=== PATIENT | female | born 1955 | race American Indian/Alaskan Native ===

== ENCOUNTER 2017-06-13 06:09 | Inpatient (IN) | payer OTHER ==
--- NOTE | 2017-06-09 11:59 | Anesthesia Consultation ---
Anesthesia Consult and Med Hx Date of service: 06/09/17 - Airway Anesthetic Teeth Evaluation: Good ROM Head & Neck: Adequate Mental/Hyoid Distance: Inadequate (less than 3FB) Mallampati Class: Class II Intubation Access Assessment: Probably Good - Pulmonary Exam CTA: Yes - Cardiac Exam Cardiac Exam: RRR - Pre-Operative Health Status ASA Pre-Surgery Classification: ASA3 Proposed Anesthetic Plan: General - Pre-Anesthesia Comment Pre-Anesthesia Comments: 62y F with h/o MARK on CPAP, HTN/HLD, OA s/p knee replacment, who presents for eval prior to lap GJ revision (primary 2007). EKG (06/06/2017) - Sinus kailey with sinus arrythmia. CBC (06/07/2017) - Hgb 12.3, Plt 245 - Pulmonary Hx Smoking: No Hx Asthma: No SOB: No Hx Sleep Apnea: Yes - Cardiovascular System Hx Hypertension: Yes (20 YEARS) Hx Coronary Artery Disease: No Hx Cardia Arrhythmia: Yes (Sinus arrythmia on EKG) Hx Heart Murmur: No - Central Nervous System Hx Seizures: No CVA: No Hx Psychiatric Problems: No - Gastrointestinal Hx Gastroesophageal Reflux Disease: No - Endocrine Hx Renal Disease: No Hx Liver Disease: No Hx Insulin Dependent Diabetes: No Hx Non-Insulin Dependent Diabetes: No Hx Thyroid Disease: No - Other Systems Hx Alcohol Use: No Hx Substance Use: No Hx Cancer: No Hx Obesity: Yes
[~2017-06-13 06:09] MED LIST: ANCEF/STERILE WATER 2 GM/20 ML 2 GM/20 ML SYRINGE IV NR; APRESOLINE IV PRN; FLAGYL 500 MG/100 ML 500 MG/100 ML BAG IV NR; MARCAINE 0.5% INFILTRATI ONE; MORPHINE IV PRN; MYLICON PO PRN; NACL 0.9% IR ONE; REGLAN IV PRN; XYLOCAINE 1% 20 mL INFILTRATI ONE; ZOFRAN IV PRN
[2017-06-13] MEDS ORDERED: LOVENOX SUB-Q NR (07:00)
[2017-06-13] MEDS ORDERED: TRANSDERM-SCOP TD SCH (07:00)
[2017-06-13] MEDS ORDERED: XYLOCAINE 1% 20 mL ONE (08:00)
[2017-06-13] MEDS ORDERED: MARCAINE 0.5% 30 ML INFILTRATI ONE (08:00)
[2017-06-13] MEDS: LACTATED RINGERS 1,000 ML IV SCH ×2 (08:08→20:06)
[2017-06-13 08:31] LABS: Bilirubin,Urine NEG (Negative); Blood,Urine NEG (Negative); Color,Urine Yellow (Yellow); Mucus,Urine FEW /HPF; Nitrite,Urine NEG (Negative); Protein,Urine <15 mg/dL mg/dL (Negative); Urobilinogen,Urine < 2.0 mg/dL (<2.0)
[2017-06-13 08:35] LABS: WBC,Urine < 1.0 /HPF (0.0-6.0)
[2017-06-13] MEDS ORDERED: SUBLIMAZE ONE (08:58)
[2017-06-13] MEDS ORDERED: XYLOCAINE CARDIAC IV ONE (08:58)
[2017-06-13] MEDS ORDERED: ZEMURON IV ONE ×2 (08:58→09:03)
[2017-06-13] MEDS ORDERED: DIPRIVAN 10 MG/ML IV ONE ×2 (08:59→09:02)
[2017-06-13] MEDS ORDERED: WATER FOR IRRIG STERILE IR ONE (09:01)
[2017-06-13] MEDS ORDERED: DECADRON ONE ×2 (09:02→11:53)
[2017-06-13] MEDS ORDERED: XYLOCAINE MPF 2% ONE (09:02)
[2017-06-13] MEDS ORDERED: DILAUDID ONE ×2 (09:03→11:24)
[2017-06-13] MEDS ORDERED: QUELICIN ONE (09:04)
[2017-06-13] MEDS ORDERED: ePHEDrine SULFATE ONE (10:44)
[2017-06-13] MEDS ORDERED: NEOSTIGMINE ONE (11:53)
[2017-06-13] MEDS ORDERED: ZOFRAN ONE (11:53)
[2017-06-13] MEDS ORDERED: ROBINUL ONE (11:53)
[2017-06-13] MEDS: SUBLIMAZE IV PRN ×2 (12:35→12:40)
--- NOTE | 2017-06-13 12:42 | Post Anesthesia Evaluation ---
- Post Anesthesia Evaluation Airway Patent: Yes Stable Respiratory Function: Yes Nausea/Vomiting: No Temp > 96.8F: Yes Pain Manageable: Yes Adequeate Hydration: Yes Anesthesia Complications: No Block Receding Appropriately: Not Applicable Patient on Ventilator: No
[2017-06-13] MEDS ORDERED: SUBLIMAZE IV PRN (12:43)
[2017-06-13] MEDS: NORCO PO PRN (13:04)
[2017-06-13 13:09] LABS: Basophils % (Auto) 0.1 % (0.0-1.8); Eosinophils % (Auto) 0.2 % (0.0-4.3); Hematocrit 38.2 % (30.3-42.9); Hemoglobin 12.7 gm/dl (10.1-14.3); Lymphocytes # (Auto) 0.8 K/mm3 (1.2-5.4); Lymphocytes % (Auto) 6.8 % (13.4-35.0); Mean Corpuscular HGB Conc 33 % (30-34); Mean Corpuscular Hemoglobin 29 pg (28-32); Mean Corpuscular Volume 87 fl (79-97); Monocytes # (Auto) 0.7 K/mm3 (0.0-0.8); Monocytes % (Auto) 5.9 % (0.0-7.3); Platelet Count 189 K/mm3 (140-440); Red Blood Count 4.39 M/mm3 (3.65-5.03); Red Cell Distribution Width 13.3 % (13.2-15.2)
[2017-06-13 13:35] LABS: Alanine Aminotransferase 37 units/L (7-56); Albumin 3.7 g/dL (3.9-5); BUN/Creatinine Ratio 9; Blood Urea Nitrogen 8 mg/dL (7-17); Calcium 8.4 mg/dL (8.4-10.2); Hemolysis Index 6
[2017-06-13] MEDS ORDERED: NEO SYNEPHRINE/NS Syringe(OR USE) IV ONE (14:54)
--- NOTE | 2017-06-13 15:38 | Operative Report ---
Operative Report Operative Report: Operative note: Preoperative Dx: 1. Enterogastric Reflux 2. Failed or complication of GJ anastomosis 3. chronic dyspepsia POSTOPERATIVE DIAGNOSES: same as preop PROCEDURES PERFORMED: 1. Laparoscopic revision of gastrojejunostomy 2. Biliopancreatic limb lengthening 3. Hiatal hernia repair 4. Intraoperative endoscopy ANESTHESIA: General endotracheal tube intubation. SPECIMENS: None. ESTIMATED BLOOD LOSS: Less than 10 mL. COMPLICATIONS: None. INDICATION: This patient had a gastric bypass several years ago and has since that time recently began to experience abdominal pain, chronic dyspepsia and weight gain. 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 DESCRIPTION OF PROCEDURE: Patient was brought to the OR suite, laid in supine position. Bilateral lower extremity SCDs were placed. General anesthesia was induced via successful endotracheal tube intubation. Patient's abdomen was prepped and draped in sterile fashion. Using a skin knife a small incision was made at the umbilicus and a veress needle was inserted with ease. Insufflation to a pressure of 12-15 was accomplished without issues. Next the skin incision at the veress needle site was widened and a 12mm trocar was placed in to the cavity under direct visualization using a 10-0 scope via optiview technique. No gross injury to any abdominal structures were noted at below the site of entry. An additional 12mm trochar was then placed right midclavicular line [facility] between umbilicus and chest.Two 5 mm ports were inserted, one just right of midline in the epigastric area and one right upper quadrant. Next one additional 5mm trochar was placed in the left upper quadrant. Prior to each trochar placement local anesthetic was used to anesthetize the skin. To prevent further enterogastric reflux and epigastric discomfort, the biliopancreatic limb would be lengthened. This was accomplished by identifying the don limb then stapling the don limb just prior to the biliopancreatic limb at the J-J. Hemostasis was obtained with electrocautery. Next the ileocecal valve was identified and the small bowel was ran proximal for about 300cm. The 300cm bowel point was marked and then brought up the previously transected don- limb and a side to side anastomosis was created with a white linear stapler load. This created a 300cm alimentary limb and a long biliopancreatic limb. Next, the liver retractor was placed and the positioned was positioned in reverse [place]. The hiatus was dissected out and the phrenoesophageal membrane was identified approaching the esophagus within the abdominal cavity. this membrane was dissected off the esophagus revealing a moderate size hiatal hernia. Using the endostich and a surgigac the crura were reapproximated closing the defect and repairing the hernia. Then using an endoscope the gastrojejunostomy was visualized. Using the hook cautery the gastric pouch was from the remnant stomach.The pouch was large. The pouch was decreased in size by stapling via blue load to the lateral portion of the pouch. Under direct vision, the gastrojejunostomy was closed from its dilated size down to a size of approximately 8 to 10mm to allow efflux of gastric contents but in effect to prevent reflux of small bowel contents back in to the pouch. This was accomplished using interrupted imbricating suture of 0 surgidac. Once the anastomosis was adequately decreased as noted by the endoscope on direct visualization passing of the endoscope thru the GJ anastomosis into the don limb. After the pouch was decreased and the GJ was resized the upper abdomen was filled with saline and a leak test was performed as the endoscope filled the pouch with air and no bubbles were noted intrabdominally. The air was suctioned from the pouch and don limb prior to removing the endoscope. The saline was also suctioned out. Next insuflation was removed from the patients abdomen. All trocars were removed under direct visualization and the abdomen was then desufflated. The 12mm umbilical port was removed and the fascia was closed via a 0-pds in a figure 8 pattern. The skin incisions were closed with 4-0 Monocryl followed by Dermabond dressings. Patient was awoken and taken to recovery in stable condition. All counts were correct.
[2017-06-13] MEDS: DILAUDID IV PRN (19:55)
[2017-06-14] MEDS: NORCO PO PRN ×3 (00:24→16:04)
[2017-06-14 04:38] LABS: Basophils % (Auto) 0.4 % (0.0-1.8); Eosinophils % (Auto) 0.2 % (0.0-4.3); Hemoglobin 10.7 gm/dl (10.1-14.3); Lymphocytes # (Auto) 0.7 K/mm3 (1.2-5.4); Lymphocytes % (Auto) 7.1 % (13.4-35.0); Mean Corpuscular HGB Conc 34 % (30-34); Mean Corpuscular Hemoglobin 29 pg (28-32); Mean Corpuscular Volume 86 fl (79-97); Monocytes # (Auto) 0.8 K/mm3 (0.0-0.8); Platelet Count 189 K/mm3 (140-440); Red Blood Count 3.75 M/mm3 (3.65-5.03); Red Cell Distribution Width 13.7 % (13.2-15.2)
[2017-06-14] MEDS: DILAUDID IV PRN ×2 (05:10→13:58)
[2017-06-14 05:11] LABS: BUN/Creatinine Ratio 10; Blood Urea Nitrogen 7 mg/dL (7-17); Calcium 8.2 mg/dL (8.4-10.2); Hemolysis Index 3
[2017-06-14] MEDS: LACTATED RINGERS 1,000 ML IV SCH ×2 (05:13→09:37)
[2017-06-14] MEDS ORDERED: HCTZ PO SCH (10:00)
[2017-06-14] MEDS ORDERED: LOVENOX SUB-Q SCH (10:00)
--- NOTE | 2017-06-14 15:56 | Discharge Summary ---
Providers - Providers Date of Admission: 06/13/17 06:09 Date of discharge: 06/14/17 Attending physician: GORDON RAJPUT Primary care physician: YEIMY CLEMENS Hospitalization Reason for admission: Lap GJ revision Condition: Stable Procedures: Laparoscopic GJ revision and biliopancreatic limb lengthening with hiatal hernia repair Hospital course: 62 y.o. F s/p Laparoscopic GJ revision and biliopancreatic limb lengthening with hiatal hernia repair on 06/13/17. On POD 1 she reports no nausea or vomiting. +flatus with no BM. +ambulation. Pt. has been tolerating liquids . Pt. reports epigastric pain, 6/10 non-radiating sharp pain, pain is relieved by her pain medication and exacerbated by movement. Prior to discharge she was tolerating liquids without issues. She discharged on POD 1. . Disposition: DC-01 TO HOME OR SELFCARE Core Measure Documentation - Palliative Care Palliative Care/ Comfort Measures: Not Applicable - Core Measures Any of the following diagnoses?: none Exam - Constitutional Vitals: Temp Pulse Resp BP Pulse Ox 98.5 F 77 18 118/57 98 06/14/17 04:53 06/14/17 08:00 06/14/17 08:00 06/14/17 08:00 06/14/17 11:20 General appearance: Present: no acute distress, well-nourished - Respiratory Respiratory effort: normal Respiratory: bilateral: CTA - Cardiovascular Rhythm: regular Heart Sounds: Present: S1 & S2 - Extremities Extremities: no ischemia, pulses intact, pulses symmetrical, No edema, Full ROM Peripheral Pulses: within normal limits - Abdominal General gastrointestinal: Present: soft, non-distended, normal bowel sounds, other (tender at incision sites. dressings with minimal dry blood ). Absent: mass Localized gastrointestinal: guarding: epigastric periumbilical - Integumentary Integumentary: Present: clear - Psychiatric Psychiatric: appropriate mood/affect Plan Activity: other (no lifting >15lbs for 6 weeks, no crunches ) Weight Bearing Status: Full Weight Bearing Diet: clear liquids (sugar free ) Wound: keep clean and dry Additional Instructions: Follow up for wound check. Follow diet as instructed in bariatric handout. Walk often. Follow up with: YEIMY CLEMENS MD [Primary Care Provider] - 7 Days
[2017-06-14 17:14] VITALS: BP 134/64
== END 2017-06-14 18:30 | disposition home or self-care (01) | DRG 327 ==
LOC: 3A 06:09 → 3B-SURG 12:39
PROVIDERS: ADMIT Specialist; ATTEND Specialist
PROC: 0DQA4ZZ Repair Jejunum, Percutaneous Endoscopic Approach (ICD-10-PCS; principal; 2017-06-13)
PROC: 0BQT4ZZ Repair Diaphragm, Percutaneous Endoscopic Approach (ICD-10-PCS; 2017-06-13)
PROC: 0DQ64ZZ Repair Stomach, Percutaneous Endoscopic Approach (ICD-10-PCS; 2017-06-13)
DX: K95.89 Other complications of other bariatric procedure (principal); Z68.42 Body mass index [BMI] 45.0-49.9, adult; K44.9 Diaphragmatic hernia without obstruction or gangrene; K21.9 Gastro-esophageal reflux disease without esophagitis; I10 Essential (primary) hypertension; Z96.659 Presence of unspecified artificial knee joint; G47.30 Sleep apnea, unspecified; E66.9 Obesity, unspecified; Z98.84 Bariatric surgery status; Y83.2 Surgical operation with anastomosis, bypass or graft as the cause of abnormal reaction of the patient, or of later complication, without mention of misadventure at the time of the procedure
CPT/HCPCS: 36415; 80048; 80053; 81001; 85025; 88307; 94760; A4217; J0330; J0360; J0690; J1100; J1170; J1650; J2001; J2270; J2370; J2405; J2704; J2710; J2765; J3010; J7120